=== PATIENT | female | born 1980 | race Caucasian/White ===

== ENCOUNTER 2018-06-17 04:08 | Emergency (ER) | payer OTHER, SELFPAY ==
[2018-06-17] MEDS ORDERED: diphenhydrAMINE 50 MG CAP ONE (04:58)
[2018-06-17] MEDS ORDERED: Famotidine 20 MG TAB ONE (04:58)
[2018-06-17] MEDS ORDERED: predniSONE 20 MG TAB ONE (04:58)
== END 2018-06-17 05:31 | disposition home or self-care (01) ==
LOC: ERS 04:08
DX: R07.0 Pain in throat (principal); F17.210 Nicotine dependence, cigarettes, uncomplicated
CPT/HCPCS: 99282; J7506

== ENCOUNTER 2024-04-28 06:31 | Emergency (ER) | payer BC, SELFPAY ==
[2024-04-28] MEDS ORDERED: HYDROcodone/Acetaminophen 10/325 mg Tablet ONE (06:45)
== END 2024-04-28 09:07 | disposition home or self-care (01) ==
LOC: ERS 06:31
DX: M25.562 Pain in left knee (principal); M13.811 Other specified arthritis, right shoulder; F17.210 Nicotine dependence, cigarettes, uncomplicated; W18.30XA Fall on same level, unspecified, initial encounter; Y93.89 Activity, other specified
CPT/HCPCS: 99283